=== PATIENT | female | born 1970 | race African-American/Black ===

== ENCOUNTER 2016-11-26 07:06 | Day surgery (SDC) | payer OTHER ==
[2016-11-26] VITALS (9 sets, daily range): BP systolic 110–123; BP diastolic 66–81
[~2016-11-26] VITALS: Ht 167.6 cm; Wt 82.6 kg
[~2016-11-26 07:06] MED LIST: ceFAZolin 1gm in D5W 55ml IVP ONE; celeBREX 200mg Cap **SURGERY PATIENTS ONLY ORAL ONE; oxyCONTIN 20mg tab ORAL ONE
[2016-11-26] MEDS ORDERED: TRAMADOL HCL50 MG ORAL (08:00)
[2016-11-26] MEDS ORDERED: Tylenol #3 tab (300mg/30mg) ORAL PRN ×2 (08:00→08:15)
[2016-11-26] MEDS ORDERED: Norco 5mg/325mg tab ORAL PRN ×3 (08:00→09:00)
[2016-11-26] MEDS ORDERED: HYDROmorphone 1mg/ml Carpuject SUBQ PRN ×2 (08:00→08:15)
[2016-11-26] MEDS ORDERED: ASPIRIN81 MG ORAL (08:00)
[2016-11-26] MEDS ORDERED: D5 1/2NS 1,000 ML IV SCH ×2 (08:00→08:15)
--- NOTE | 2016-11-26 08:00 | Pre-Procedure Note/Attestation ---
Pre-Procedure Note/Attestation Complete Prior to Procedure Planned Procedure: right Procedure Narrative: shoulder arthroscopy, possible labral repair, possible sad Indications for Procedure Pre-Operative Diagnosis: right shoulder labral tear, impingement Attestation I attest that I discussed the nature of the procedure; its benefits; risks and complications; and alternatives (and the risks and benefits of such alternatives ), prior to the procedure, with the patient (or the patient's legal payable representative). I attest that, if there was a reasonable possibility of needing a blood transfusion, the patient (or the patient's legal payable representative) was given the [facility] standardized written summary, pursuant to the Jonatan Keith Blood Safety Act ([place] Health and Safety Code # 1645, as amended). I attest that I re-evaluated the patient just prior to the surgery and that there has been no change in the patient's H&P, except as documented below: GEORGE PAGAN Nov 26, 2016 08:00
--- NOTE | 2016-11-26 08:00 | Operative Note - PDOC ---
Operative Note Operative Note Pre-op Diagnosis: right shoulder labral tear, impingement Procedure: see op report Post-op Diagnosis: same as pre-op plus Operative Findings: consistent w/pre-op dx studies Anesthesia: general Specimen: none Complications: none Condition: stable Estimated Blood Loss: none Implant(s) used?: No GEORGE PAGAN Nov 26, 2016 08:00
[2016-11-26] MEDS ORDERED: LR 1000ml 1,000 ML IVLG SCH (08:59)
--- NOTE | 2016-11-26 08:59 | Anethesia Preoperative Eval ---
Anesthesia Pre-op PMH/ROS General Date of Evaluation: Nov 26, 2016 Time of Evaluation: 09:44 Anesthesiologist: Pratik ASA Score: ASA 2 Mallampati Score Class I : Soft palate, uvula, fauces, pillars visible Class II: Soft palate, uvula, fauces visible Class III: Soft palate, base of uvula visible Class IV: Only hard plate visible Mallampati Classification: Class II Surgeon: Cleve Diagnosis: R Shoulder Pain Surgical Procedure: RShoulder Arthroscopy, SLAP Repair Anesthesia History: none Family History: no anesthesia problems Allergies: Coded Allergies: No Known Allergies (Unverified , 11/25/16) Medications: see eMAR Past Medical History Neurologic/Psychiatric: Reports: CVA - BCP Other: obesity - BMI 30 PSxH Narrative: Myomectomy, BTL Anesthesia Pre-op Phys. Exam Physician Exam Last Vital Signs Date Time Temp Pulse Resp B/P Pulse Ox O2 Delivery O2 Flow Rate FiO2 11/26/16 07:50 97.8 84 18 123/81 84 Room Air Constitutional: NAD Neurologic: CN 2-12 intact Cardiovascular: RRR Respiratory: CTA Gastrointestinal: S/NT/ND Airway Exam Mallampati Score: Class II MO: full ROM: full Teeth: intact Anesthesia Pre-op A/P Labs Urine Test Test 11/26/16 07:15 Urine HCG, Qualitative Negative Risk Assessment & Plan Assessment: ASA 2 Plan: GA, BIS, Glidescope Status Change Before Surgery: No Pre-Antibiotics Dru Grams Ancef IV Given Within 1 Hr of Incision: Yes Time Given: 10:06 Randy Christie MD Nov 26, 2016 08:59
[2016-11-26] MEDS ORDERED: Metoclopramide 10mg/2ml Inj IVP PRN (09:00)
[2016-11-26] MEDS ORDERED: Midazolam 2mg/2ml Inj IVP PRN (09:00)
[2016-11-26] MEDS ORDERED: Hydromorphone 0.5mg/0.5ml inj IVP PRN (09:00)
[2016-11-26] MEDS ORDERED: Atropine Inj 1mg/10ml Syr IV PRN (09:00)
[2016-11-26] MEDS ORDERED: Ketorolac 60mg Inj IV PRN (09:00)
[2016-11-26] MEDS ORDERED: Ketorolac 30mg Inj IV PRN (09:00)
[2016-11-26] MEDS ORDERED: Meperidine 25mg/0.5ml Inj IV PRN (09:00)
[2016-11-26] MEDS ORDERED: fentaNYL 100 mcg/2 mL IV PRN (09:00)
[2016-11-26] MEDS ORDERED: DiphenhydrAMINE 50mg/ml Inj IVP PRN (09:00)
[2016-11-26] MEDS ORDERED: LORazepam Inj 2mg/ml 1ml IV PRN (09:00)
[2016-11-26] MEDS ORDERED: Norco 7.5mg/325mg tab ORAL PRN (09:00)
[2016-11-26] MEDS ORDERED: Oxycodone/Acetaminophen 5-325 ORAL PRN (09:00)
[2016-11-26] MEDS ORDERED: Ropivacaine 5mg/ml Vial 20ml INJ ONE (09:27)
[2016-11-26] MEDS ORDERED: EPINEPHrine 1mg/1ml Amp ONE (09:31)
[2016-11-26] MEDS ORDERED: Bupivacaine w/Epi 0.25% 30ml Vial INJ ONE (09:31)
[2016-11-26] MEDS ORDERED: Lidocaine 1% MPF 10mg/ml 5ml ONE (09:45)
[2016-11-26] MEDS ORDERED: Propofol 10mg/ml 20ml IV ONE (09:45)
[2016-11-26] MEDS ORDERED: Midazolam 2mg/2ml Inj ONE (09:45)
[2016-11-26] MEDS ORDERED: Dexamethasone 4mg/ml vial ONE (09:45)
[2016-11-26] MEDS ORDERED: Alfentanil 2ml Inj ONE (09:45)
[2016-11-26] MEDS ORDERED: LR 1000ml ONE (09:45)
--- NOTE | 2016-11-26 11:33 | Immediate Post-Op Evaluation ---
Immediate Post-Op Evalulation Immediate Post-Op Evalulation Procedure: R Shoulder Arthroscopy, SLAP Repair Date of Evaluation: Nov 26, 2016 Time of Evaluation: 11:43 IV Fluids: 900 LR Blood Products: 0 Estimated Blood Loss: 20 Urinary Output: 0 Blood Pressure Systolic: 120 Blood Pressure Diastolic: 76 Pulse Rate: 96 Respiratory Rate: 16 O2 Sat by Pulse Oximetry: 100 Temperature (Fahrenheit): 97.9 Pain Score (1-10): 0 Nausea: No Vomiting: No Complications 0 Patient Status: awake, reacts, patent, extubated, none Hydration Status: adequate Dru Grams Ancef IV Given Within 1 Hr of Incision: Yes Time Given: 10:06 Rnady Christie MD Nov 26, 2016 11:33
--- NOTE | 2016-11-26 11:35 | 48 Hour Post Anesthesia Eval ---
Post Anesthesia Evaluation Procedure: R Shoulder Arthroscopy, SLAP Repair Date of Evaluation: Nov 26, 2016 Time of Evaluation: 13:52 Blood Pressure Systolic: 131 0: 82 Pulse Rate: 83 Respiratory Rate: 18 Temperature (Fahrenheit): 97.9 O2 Sat by Pulse Oximetry: 99 Airway: patent Nausea: No Vomiting: No Pain Intensity: 1 Hydration Status: adequate Cardiopulmonary Status: Stable Mental Status/LOC: patient returned to baseline Follow-up Care/Observations: 0 Post-Anesthesia Complications: 0 Follow-up care needed: ready to discharge Randy Christie MD Nov 26, 2016 11:35
--- NOTE | 2016-11-26 16:30 | Operative Note - Dictated ---
DATE OF OPERATION: 11/26/2016 PREOPERATIVE DIAGNOSES: 1. Right shoulder anterior labral tear. 2. Right shoulder impingement syndrome. POSTOPERATIVE DIAGNOSES: 1. Right shoulder anterior labral tear. 2. Right shoulder impingement syndrome. PROCEDURES: 1. Right shoulder arthroscopy, extensive intra-articular debridement. 2. Right shoulder anterior labral stabilization. 3. Right shoulder subacromial decompression and bursectomy. SURGEON: Everton Poon M.D. ANESTHESIA: Interscalene with general. INDICATION FOR THE PROCEDURE: The patient is a pleasant 46-year-old female with continued right shoulder pain. She had MRI, which showed a traumatic labral tear with a partial tear of the supraspinatus tendon. She failed conservative treatment and would like to undergo right shoulder arthroscopic labral stabilization and recurrent subacromial decompression and bursectomy. Risks, limitations, expectations and complications of the procedure were discussed in detail. All questions were addressed. DESCRIPTION OF PROCEDURE: An informed consent was obtained. The patient was taken to the operating room and placed under interscalene and general anesthesia. The patient was then carefully placed in a beach-chair position. Right shoulder was prepped and draped in a sterile manner. Ancef was administered. Time-out was performed. Portal sites entered with 0.25% with epinephrine. Inferolateral stab incision was then made. Trocar was introduced into the glenohumeral joint. Of note, there was significant tear of the anterior labrum along the anterior glenoid. There is some fraying extending into the superior labrum. Biceps tendon appeared to be intact along with the footprint of the rotator cuff. No loose bodies intra-articularly. At this point, the labral tissue was debrided off the anterior margin of the glenoid to allow mobilization. Once adequate mobilization was performed, two arthroscopic anchor was then placed and stitched back to anterior labrum to the anterior margin of the glenoid. Once that was done, the reconstruction was probed and noted to be stable. At this point, the camera was placed in the subacromial space. There was significant bursal tissue, which was removed to better visualize the anterior aspect of the acromion. She had significant acromial spur and therefore acromioplasty was tried from lateral and medial and completed from posteriorly to anteriorly. Once that was done, the bursectomy was completed posteriorly. Once that was completed, the instruments removed. Portal sites were closed with 3-0 Monocryl sutures. Compression dressing was applied. The patient was awoken and taken to the recovery in stable signs. ESTIMATED BLOOD LOSS: Minimal. COMPLICATIONS: None. SPECIMENS: None. IMPLANTS: Two juggernaut anchors. Everton Poon M.D. DR: Brittni JOB#: [id number] CC: [id number]
== END 2016-11-26 14:35 | disposition home or self-care (01) ==
LOC: SUR 07:06
DX: S43.431A Superior glenoid labrum lesion of right shoulder, initial encounter (principal); M75.41 Impingement syndrome of right shoulder; W01.0XXA Fall on same level from slipping, tripping and stumbling without subsequent striking against object, initial encounter; Y92.89 Other specified places as the place of occurrence of the external cause; Y99.9 Unspecified external cause status; E66.9 Obesity, unspecified; Z68.30 Body mass index [BMI] 30.0-30.9, adult; I69.354 Hemiplegia and hemiparesis following cerebral infarction affecting left non-dominant side; Z98.51 Tubal ligation status; Z79.82 Long term (current) use of aspirin; Z79.899 Other long term (current) drug therapy
CPT/HCPCS: 29807; 29826; 81025; J0171; J0690; J1100; J2250; J2405; J2704; J2795; J3490; J7120